=== PATIENT | male | born 1955 | race Caucasian/White ===

== ENCOUNTER 2019-10-12 06:34 | Day surgery (SDC) | payer MEDICARE, OTHER ==
[~2019-10-12] VITALS: Ht 165.1 cm; Wt 48.7 kg
[~2019-10-12 06:34] MED LIST: LIDOCAINE 2% 5 ML JELLY ONE; SODIUM CHLORIDE 0.9% 1,000 ML IV ONE; SODIUM CHLORIDE 0.9% 1,000 ML ONE
[2019-10-12] MEDS ORDERED: MIDAZOLAM HCL 2 MG/2 ML VIAL ONE (08:14)
[2019-10-12] MEDS ORDERED: FentaNYL CITRATE-PF 100 MCG/2 ML VIAL ONE (08:14)
[2019-10-12] MEDS ORDERED: MethylPREDNISolone SOD SUCC 125 MG/2 ML VIAL IVP ONE (08:45)
[2019-10-12] MEDS ORDERED: LIDOCAINE 4% 50 ML SOLUTION ONE (16:44)
[2019-10-12] MEDS ORDERED: LIDOCAINE 2% 30 ML JELLY ONE (16:44)
[2019-10-12] MEDS ORDERED: BENZOCAINE 20% 50 MCG/SPRAY 57 GM ONE (16:44)
[2019-10-12] MEDS ORDERED: ALBUTEROL SULFATE 2.5 MG/0.5 ML NEB SOLUTION NEB ONE (16:44)
[2019-10-12] MEDS ORDERED: OXYGEN THERAPY IH SCH (20:00)
== END 2019-10-12 10:10 | disposition home or self-care (01) ==
LOC: SURGERY 06:34
PROVIDERS: ATTEND Internal Medicine Critical Care Medicine
DX: R05 Cough (principal); R91.8 Other nonspecific abnormal finding of lung field; J98.8 Other specified respiratory disorders; J34.89 Other specified disorders of nose and nasal sinuses; B37.0 Candidal stomatitis; I10 Essential (primary) hypertension; E78.00 Pure hypercholesterolemia, unspecified; J44.9 Chronic obstructive pulmonary disease, unspecified; Z79.899 Other long term (current) drug therapy; Z11.59 Encounter for screening for other viral diseases
CPT/HCPCS: 31623; 31624; 71045; 87015; 87070; 87101; 87205; 87206; 87220; 87635; 88108; 88312; 93005; J2250; J3010; J7030